=== PATIENT | female | born 1955 | race Caucasian/White ===

== ENCOUNTER 2019-07-09 07:14 | Day surgery (SDC) | payer OTHER ==
[2019-07-09] VITALS (13 sets, daily range): BP systolic 119–157; BP diastolic 67–88; PULSE 66–78; RESP 11–18; Ht 162.6 cm; Wt 72.9 kg
[~2019-07-09] VITALS: Ht 162.6 cm; Wt 72.9 kg
[~2019-07-09 07:14] MED LIST: AMLO5TAB4 PO; ATEN50TA PO; ATOR40TA68 PO; METO-336 PO; SIMV40TA19 PO
[2019-07-09] MEDS ORDERED: PROPOFOL 20 ML ONE (08:26)
[2019-07-09] MEDS ORDERED: CEFAZOLIN 1 GM INJ ONE (08:26)
[2019-07-09] MEDS ORDERED: MIDAZOLAM 1 MG/ML 2 ML INJ ONE (08:26)
[2019-07-09] MEDS ORDERED: FENTAnyl 50 MCG/ML VIAL ONE (08:26)
[2019-07-09] MEDS ORDERED: ONDANSETRON 4 MG INJ ONE (08:26)
[2019-07-09] MEDS ORDERED: NEOSTIGMINE 3 MG/3 ML SYRINGE ONE (08:26)
[2019-07-09] MEDS ORDERED: DESFLURANE 15 MIN ONE (08:26)
[2019-07-09] MEDS ORDERED: GLYCOPYRROLATE 0.4 MG INJ ONE (08:26)
[2019-07-09] MEDS ORDERED: DEXAMETHASONE 4 MG/ML 5 ML INJ ONE (08:26)
[2019-07-09] MEDS ORDERED: ROCURONIUM 50 MG INJ ONE (08:26)
[2019-07-09] MEDS ORDERED: LACTATED RINGER'S 1,000 ML IV SCH (08:30)
[2019-07-09] MEDS ORDERED: BUPIVACAINE 0.25% (MPF) 30 ML INJ ONE (08:59)
[2019-07-09] MEDS ORDERED: LIDOCAINE 1% (MPF) 30 ML INJ ONE (08:59)
[2019-07-09] MEDS ORDERED: OXYCODONE/ACETAMINOPHEN (5/325) TAB PO PRN ×2 (10:00)
[2019-07-09] MEDS ORDERED: morphine 2 MG INJ IV PRN (10:00)
[2019-07-09] MEDS ORDERED: ONDANSETRON 4 MG INJ IV PRN (10:00)
== END 2019-07-09 12:15 | disposition home or self-care (01) ==
LOC: SDS 07:14
PROVIDERS: ATTEND Surgery
DX: D17.21 Benign lipomatous neoplasm of skin and subcutaneous tissue of right arm (principal)
CPT/HCPCS: 21552; J0690; J1100; J2250; J2405; J2710; J3010; Z7610; 88307